=== PATIENT | male | born 1960 | race African-American/Black ===

== ENCOUNTER 2018-05-01 20:48 | Emergency (ER) | payer SELFPAY ==
[2018-05-01] MEDS ORDERED: Sodium Chloride 0.9% 1,000 ML ONE (21:05)
[2018-05-01] MEDS ORDERED: Ondansetron HCl/PF 4 MG/2 ML Vial ONE (21:05)
[2018-05-01 21:31] LABS: #Basophils 0.1 thou/uL (0.0-0.2); #Eosinphils 0.3 thou/uL (0.0-0.7); #Lymphocytes 3.9 thou/uL (1.20-3.40); #Monocytes 0.9 thou/uL (0.11-0.59); #Neutrophils 3.7 thou/uL (1.40-6.50); %Basophils 1.4 % (0.0-1.0); %Eosinophils 3.4 % (0.0-10.0); %Lymphocytes 43.9 % (21.0-51.0); %Monocytes 10.4 % (0.0-10.0); Hemoglobin 13.9 g/dL (14.0-18.0); Mean Corpuscular HGB CONC 33.5 g/dL (32.0-36.0); Mean Corpuscular Hemoglobin 29.3 pg (27.0-31.0); Mean Corpuscular Volume 87.6 fL (78.0-98.0); Mean Platelet Volume 6.3 fL (7.4-10.4); Platelet Count 312 thou/uL (130-400); RBC Distribution Width 13.2 % (11.5-14.5); Red Blood Cell (RBC) Count 4.76 mill/uL (4.70-6.10); White Blood Cell (WBC) Count 8.9 thou/uL (4.8-10.8)
[2018-05-01 21:32] LABS: ALT (SGPT) 23 U/L (8-55); AST (SGOT) 27 U/L (5-34); Albumin 4.4 g/dL (3.5-5.0); Alkaline Phosphatase 45 U/L (40-150); Anion Gap 16 mmol/L (10-20); BUN (Urea Nitrogen) 11 mg/dL (8.4-25.7); Bilirubin, Total 0.8 mg/dL (0.2-1.2); Calc. Creatinine Clearance 0 mL/min (70-130); Calcium 9.7 mg/dL (7.8-10.44); Carbon Dioxide 20 mmol/L (22-29); Chloride 100 mmol/L (98-107); Estimated GFR-MDRD 85; Glucose 119 mg/dL (70-105); Lipase 17 U/L (8-78); Potassium 3.4 mmol/L (3.5-5.1); Protein, Total 7.4 g/dL (6.0-8.3); Sodium 133 mmol/L (136-145)
== END 2018-05-01 22:00 | disposition home or self-care (01) ==
LOC: NAV ERS 20:48
DX: K40.30 Unilateral inguinal hernia, with obstruction, without gangrene, not specified as recurrent (principal)
CPT/HCPCS: 80053; 83690; 85025; 96361; 96374; J2405; J7050

== ENCOUNTER 2018-08-14 14:53 | Emergency (ER) | payer SELFPAY ==
[2018-08-14] MEDS ORDERED: Bupivacaine 0.5% 10 ML VIAL ONE ×2 (14:59→15:14)
[2018-08-14] MEDS ORDERED: Adacel (T-DAP) 0.5 ML VIAL ONE (15:22)
[2018-08-14] MEDS ORDERED: Bacitracin Zinc 1 Packet ONE (16:08)
== END 2018-08-14 16:40 | disposition home or self-care (01) ==
LOC: NAV ERS 14:53
DX: S61.412A Laceration without foreign body of left hand, initial encounter (principal); S08.0XXA Avulsion of scalp, initial encounter; S51.802A Unspecified open wound of left forearm, initial encounter; S61.203A Unspecified open wound of left middle finger without damage to nail, initial encounter; Z23 Encounter for immunization; Y00.XXXA Assault by blunt object, initial encounter
CPT/HCPCS: 12004; 90471; 90715; J3490

== ENCOUNTER 2018-08-30 11:39 | Emergency (ER) | payer SELFPAY ==
[2018-08-30] MEDS ORDERED: Bacitracin Zinc 1 Packet ONE (12:00)
== END 2018-08-30 12:10 | disposition home or self-care (01) ==
LOC: NAV ERS 11:39
DX: S61.412D Laceration without foreign body of left hand, subsequent encounter (principal)

== ENCOUNTER 2019-03-14 12:16 | Outpatient (CLI) | payer OTHER, SELFPAY ==
--- NOTE | 2019-03-14 12:56 | RAD ---
EXAM: Lumbar spine 3 views: HISTORY: Disability evaluation COMPARISON: None FINDINGS: Marked right hip joint arthrosis. No evidence for acute fracture or dislocation involving the visualized spine. There are disc osteophytosis and facet arthrosis changes. No evidence for malalignment. No evidence for a bone lesion. IMPRESSION: Spondylosis. Marked right hip joint arthrosis. No other acute process.
--- NOTE | 2019-03-14 12:58 | RAD ---
Exam: XR Hip Rt 2-3 View HISTORY: Disability evaluation. COMPARISON: None FINDINGS: There is severe right hip osteoarthritis with prominent osteophytes. There is subchondral sclerosis a nd subchondral cystic changes involving the superior acetabulum as well as the femoral head. No acute fracture, dislocation, or other acute osseous abnormality is identified. Glucose overlie the right hemipelvis. IMPRESSION: Severe right hip osteoarthritis.
== END 2019-03-14 12:17 | disposition home or self-care (01) ==
LOC: NAV RAD 12:16
PROVIDERS: ATTEND Family Medicine
DX: Z02.71 Encounter for disability determination (principal); M15.9 Polyosteoarthritis, unspecified; M16.11 Unilateral primary osteoarthritis, right hip; M47.816 Spondylosis without myelopathy or radiculopathy, lumbar region
CPT/HCPCS: 72100

== ENCOUNTER 2022-11-09 08:44 | Outpatient (CLI) | payer MEDICAID, OTHER | END 2022-11-09 08:45 | disposition home or self-care (01) | LOC: NAV RAD 08:44 | PROVIDERS: ATTEND Nurse Practitioner Family | DX: M16.11 Unilateral primary osteoarthritis, right hip (principal) ==